=== PATIENT | male | born 1990 | race Caucasian/White ===

== ENCOUNTER 2018-11-16 08:38 | Emergency (ER) | payer SELFPAY ==
[2018-11-16] MEDS ORDERED: DICYCLOMINE HCL INJ 20 MG/2 ML AMPULE IM STA (09:34)
[2018-11-16] MEDS ORDERED: NORMAL SALINE 1000 ML 1,000 ML IV ONE (09:34)
[2018-11-16] MEDS ORDERED: ONDANSETRON HCL INJ/PF 4 MG/2 ML SDV IV ONE (09:34)
--- NOTE | 2018-11-16 09:36 | ER Document Report ---
ED GI/ - General Chief Complaint: Abdominal Pain Stated Complaint: VOMITING Time Seen by Provider: 11/16/18 09:29 Primary Care Provider: GUERO FRANK MD [Primary Care Provider] - Follow up as needed Mode of Arrival: Ambulatory Information source: Patient TRAVEL OUTSIDE OF THE [place] IN LAST 30 DAYS: No - HPI Patient complains to provider of: Diarrhea, Vomiting Notes: 11/16/18 09:34 Patient patient here with complaints of nausea for the next 4 days with diarrhea. No blood in his stool. Today he actually vomited once. States that he occasionally gets a sharp pain in his lower abdomen on the left side, but denies any pain now. He denies any fevers. No dysuria or hematuria. No known sick contacts. No recent travel outside [place]. No recent antibiotic use. No chronic abdominal problems. No chest pain or shortness of breath. No rash. No numbness, tingling, weakness. No blurred or loss of vision. No pain currently. States he has some decreased energy as well. He has been able to keep some food and fluids down. He denies any other specific complaints at this time. - Related Data Allergies/Adverse Reactions: No Known Allergies Allergy (Verified 11/16/18 09:28) Past Medical History - Social History Smoking Status: Unknown if Ever Smoked Family History: Reviewed & Not Pertinent Review of Systems - Review of Systems -: Yes All other systems reviewed and negative Physical Exam - Vital signs Vitals: Temp Pulse Resp BP Pulse Ox 98.0 F 101 H 18 164/99 H 97 11/16/18 08:44 11/16/18 08:44 11/16/18 08:44 11/16/18 08:44 11/16/18 08:44 - Notes Notes: GENERAL: alert, cooperative, nontoxic, no distress. HEAD: normocephalic, atraumatic EYES: conjunctiva pink without discharge, no external redness or swelling. EARS: no external swelling, no external redness NOSE: atraumatic, no external swelling MOUTH/THROAT: mucous membranes moist and pink, posterior pharynx without erythema, swelling, exudate. No trismus or drooling. NECK: soft, supple, full range of motion, no meningismus. CHEST: no distress, lungs clear and equal throughout. No wheezing, rales, rhonchi. CARDIAC: regular rate and rhythm, no murmur, normal capillary refill, normal pulses. No peripheral edema noted. ABDOMEN: Soft, nontender. No rebound tenderness or guarding. No mass. Obese abdomen. BACK: full range of motion, no CVA tenderness. EXTREMITIES: full range of motion of all extremities. No redness, no swelling. NEURO: alert and oriented x 3, no focal deficits, full range of motion of all extremities. PYSCH: appropriate mood, affect. Patient is cooperative. SKIN: pink, warm, dry, no rash. Course - Re-evaluation Re-evalutation: 11/16/18 11:14 Patient states he is feeling significantly better at this time. Labs show an elevated lipase above 400 and elevation of his LFTs. Patient states that he does drink about a sixpack of beer every day. Due to his elevations, I have ordered an ultrasound right upper quadrant to rule out a structural cause of his elevated LFTs and lipase. I gave the patient this information, questions been answered. We will continue to monitor. 11/16/18 11:58 Patient states that he currently does not have insurance, he is concerned with the cost of having the ultrasound done and would not like to have that test done at this time. I explained to him that he could potentially have a structural cause causing his LFTs and lipase to be elevated. These would include but not limited to acute cholecystitis, gallstone pancreatitis, Karoline ductal lithiasis. Explained that he potentially could get worse have increased morbidity and potentially even . Patient verbalized understanding of this. Is of sound mind and will be signed out AGAINST MEDICAL ADVICE. His elevated LFTs and lipase may be secondary to drinking a sixpack of beer every day. He will be instructed to decrease his alcohol intake. Will be discharged home with a prescription for Mary Jimenez, referral to the [facility]. He is instructed to follow-up with him at the next available appointment. Certainly return to the emergency department he has any worsening pain, high fever, persistent vomiting, or has any further concerns. The patient and/or family have decided to leave against medical advice. The patient and/or family are of sound mind to make this decision. The risks of leaving were discussed with the patient and/or family who verbalized an u nderstanding of these risks. The possibility of worsening condition, chance of increased morbidity, disability, mortality, and even were discussed. The patient and/or family still choose to leave against medical advice. Strict return instructions were given. They were also instructed to return to the emergency department for any concerns not outlined in the return instructions. - Vital Signs Vital signs: Temp Pulse Resp BP Pulse Ox 98.0 F 101 H 18 164/99 H 97 11/16/18 08:44 11/16/18 08:44 11/16/18 08:44 11/16/18 08:44 11/16/18 08:44 - Laboratory Result Diagrams: 11/16/18 09:50 11/16/18 09:50 Laboratory results interpreted by me: 11/16/18 11/16/18 09:50 09:50 Calcium 10.3 H Direct Bilirubin 0.5 H AST 145 H ALT 157 H Lipase 458.3 H Urine Protein 100 H Urine Urobilinogen 4.0 H Discharge - Discharge Clinical Impression: Nausea vomiting and diarrhea, Elevated LFTs Pancreatitis Qualifiers: Chronicity: acute Pancreatitis type: unspecified pancreatitis type Acute pancreatitis complication: unspecified Qualified Code(s): K85.90 - Acute pancreatitis without necrosis or infection, unspecified Condition: Stable Disposition: AGAINST MEDICAL ADVICE Instructions: Abdominal Pain ([facility]), Pancreatitis ([facility]), Liver Function Abnormality ([facility]), Chronic Alcoholism ([facility]) Additional Instructions: Take medication as prescribed. Follow-up with primary care at the next available appointment. Decrease your alcohol intake. Follow-up sooner for worsening pain, fever, persistent vomiting, or for any further concerns. Prescriptions: Dicyclomine HCl [Bentyl 20 mg Tablet] 20 mg PO QID #20 tablet Ondansetron HCl [Zofran 4 mg Tablet] 1 tab PO Q4H PRN #10 tablet PRN Reason: Forms: Return to Work, Elevated Blood Pressure, Smoking Cessation Education Referrals: GUERO FRANK MD [Primary Care Provider] - Follow up as needed [facility] [Provider Group] - Follow up as needed
[2018-11-16 10:15] LABS: ABSOLUTE EOSINOPHILS # (AUTO) 0.2 10^3/uL (0.0-0.6); ABSOLUTE LYMPHOCYTES (AUTO) 1.9 10^3/uL (0.5-4.7); ABSOLUTE MONOCYTES (AUTO) 0.5 10^3/uL (0.1-1.4); ABSOLUTE NEUT (AUTO) 2.8 10^3/uL (1.7-8.2); BASOPHILS % (AUTO) 0.8 % (0-2); EOSINOPHILS % (AUTO) 4.4 % (0-6); HEMATOCRIT 48.2 % (37.9-51.0); HEMOGLOBIN 16.8 g/dL (13.5-17.0); LYMPHOCYTES % (AUTO) 34.7 % (13-45); MEAN CORPUSCULAR HEMOGLOBIN 32.2 pg (27.0-33.4); MEAN CORPUSCULAR HGB CONC 34.8 g/dL (32.0-36.0); MEAN CORPUSCULAR VOLUME 92 fl (80-97); MONOCYTES % (AUTO) 8.5 % (3-13); PLATELET COUNT 240 10^3/uL (150-450); RED BLOOD COUNT 5.22 10^6/uL (4.35-5.55); RED CELL DISTRIBUTION WIDTH 13.3 % (11.5-14.0); SEGMENTED NEUTROPHILS % (AUTO) 51.6 % (42-78); TOTAL CELLS COUNTED % (AUTO) 100 %; WHITE BLOOD COUNT 5.4 10^3/uL (4.0-10.5)
[2018-11-16 10:23] LABS: APPEARANCE,URINE SLIGHTLY-CLOUDY; BILIRUBIN,URINE NEGATIVE (NEGATIVE); GLUCOSE, URINE NEGATIVE (NEGATIVE); KETONES,URINE NEGATIVE (NEGATIVE); LEUKOCYTE ESTERASE,URINE NEGATIVE (NEGATIVE); NITRITE,URINE NEGATIVE (NEGATIVE); PROTEIN,URINE 100 mg/dL (NEGATIVE); URINE SPECIFIC GRAVITY 1.025
[2018-11-16 10:24] LABS: COLOR,URINE YELLOW
[2018-11-16 10:35] LABS: ALANINE AMINOTRANSFERASE 157 U/L (21-72); ALBUMIN 4.7 g/dL (3.5-5.0); ALKALINE PHOSPHATASE 81 U/L (38-126); ANION GAP 11 (5-19); ASPARTATE AMINO TRANSFERASE 145 U/L (17-59); BILIRUBIN,DIRECT 0.5 mg/dL (0.0-0.4); BILIRUBIN,TOTAL 0.9 mg/dL (0.2-1.3); BLOOD UREA NITROGEN 9 mg/dL (7-20); CALCIUM 10.3 mg/dL (8.4-10.2); CARBON DIOXIDE 27 mmol/L (22-30); CHLORIDE 101 mmol/L (98-107); GLUCOSE 102 mg/dL (75-110); LIPASE 458.3 U/L (23-300); POTASSIUM 4.2 mmol/L (3.6-5.0); SODIUM 139.3 mmol/L (137-145)
[2018-11-16 12:05] VITALS: BP 153/95
== END 2018-11-16 12:12 | disposition left against medical advice (07) ==
LOC: ER 08:38
DX: K85.90 Acute pancreatitis without necrosis or infection, unspecified (principal); R11.2 Nausea with vomiting, unspecified; R19.7 Diarrhea, unspecified; R79.89 Other specified abnormal findings of blood chemistry
CPT/HCPCS: 99284; 96372; 96361; 96374; 36415; 83690; 85025; 80053; 81001; J0500; J2405; J7030

== ENCOUNTER 2019-06-20 02:28 | Emergency (ER) | payer SELFPAY ==
--- NOTE | 2019-06-20 04:02 | ER Document Report ---
HPI - HPI Time Seen by Provider: 06/20/19 03:48 Pain Level: Denies Context: Patient is a 28-year-old male that comes to the emergency department for chief complaint of generally not feeling well. He states that for the past 2 mornings when he gets up in the morning he will suddenly feel nauseated and vomit several times. He states this is the only time that happens. He states he thought he was getting sick with something. He denies abdominal pain, diarrhea, feve r/chills, or any other complaints at this time. He takes no daily medications. He admits that up until recently he was drinking daily alcohol. He smokes. He denies recreational drugs. He denies any medical history including surgeries or daily medications. He states that he was instructed that he needed a work note if he was not going to go to work today or he would get in trouble. - CONSTITUTIONAL Constitutional: REPORTS: Fever, Chills - EENT EENT: REPORTS: Sore Throat. DENIES: Ear Pain, Eye problems - NEURO Neurology: DENIES: Headache, Weakness, Vision blurred, Dizzinesss / Vertigo - CARDIOVASCULAR Cardiovascular: DENIES: Chest pain - RESPIRATORY Respiratory: DENIES: Trouble Breathing, Coughing - GASTROINTESTINAL Gastrointestinal: DENIES: Abdominal Pain, Black / Bloody Stools - URINARY Urinary: DENIES: Dysuria, Urgency, Frequency - REPRODUCTIVE Reproductive: DENIES: : - MUSCULOSKELETAL Musculoskeletal: DENIES: Extremity pain Past Medical History - General Information source: Patient - Social History Smoking Status: Never Smoker Frequency of alcohol use: Heavy Drug Abuse: None Lives with: Spouse/Significant other Family History: Reviewed & Not Pertinent Patient has suicidal ideation: No Patient has homicidal ideation: No Renal/ Medical History: Denies: Hx Peritoneal Dialysis Surgical Hx: Negative - Immunizations Immunizations up to date: Yes Hx Diphtheria, Pertussis, Tetanus Vaccination: Yes Vertical Provider Document - CONSTITUTIONAL General Appearance: WD/WN, No Apparent Distress, Obese - INFECTION CONTROL TRAVEL OUTSIDE OF THE [place] IN LAST 30 DAYS: No - HEENT HEENT: Atraumatic, Normal ENT Exam, Normocephalic - NECK Neck: Normal Inspection - RESPIRATORY Respiratory: Breath Sounds Normal, No Respiratory Distress, Chest Non-Tender - CARDIOVASCULAR Cardiovascular: Regular Rate, Regular Rhythm. negative: Tachycardia - GI/ABDOMEN Gastrointestinal: Abdomen Soft, Abdomen Non-Tender. negative: Abdomen Tender - BACK Back: Normal Inspection - MUSCULOSKELETAL/EXTREMETIES Musculoskeletal/Extremeties: MAEW, FROM, Non-Tender - NEURO Level of Consciousness: Awake, Alert, Appropriate Motor/Sensory: No Motor Deficit, No Sensory Deficit - DERM Integumentary: Warm, Dry, No Rash Course - Re-evaluation Re-evalutation: On my evaluation patient is asymptomatic. He tells me he is essentially here for a work note but he is also asking me a lot of questions about his symptoms. His symptoms based on his recent alcohol abuse are most consistent with gastritis, his abdomen is completely benign, he has no current symptoms. He was initially hypertensive but this was rechecked and better. He does not have any tachycardia, tremors, or other signs of alcohol withdrawals. He also does not have any sick symptoms on evaluation, no fever on vital signs. I did discuss laboratory work-up because of his symptoms but patient declined because of the potential cost. Because he is asymptomatic at this time I feel this is appropriate. He will be treated for suspected gastritis, discussed follow-up and return precautions. Patient states appreciation and agreement. - Vital Signs Vital signs: Temp Pulse Resp BP Pulse Ox 97.9 F 101 H 18 185/94 H 95 06/20/19 02:33 06/20/19 02:33 06/20/19 02:33 06/20/19 02:33 06/20/19 02:33 Discharge - Discharge Clinical Impression: Vomiting Qualifiers: Vomiting type: unspecified Vomiting Intractability: non-intractable Nausea presence: with nausea Qualified Code(s): R11.2 - Nausea with vomiting, unspecified Condition: Stable Disposition: HOME, SELF-CARE Additional Instructions: Your symptoms and examination indicate gastritis/esophagitis (inflammation of your upper gastrointestinal tract). Take Phenergan for nausea, take Carafate and Pepcid as prescribed to help treat this, you can take additional Rolaids, Tums, Maalox, etc. if needed. You can take Tylenol for pain. Avoid NSAIDs, alcohol, smoking, caffeine, spicy food. Start with clear fluids, progress to bland diet. Follow-up with primary care for additional evaluation and treatment including possible H. pylori testing. Have them recheck your blood pressure. Return if you worsen including uncontrolled vomiting, vomiting blood, black stools, severe pain, fever of 100.4 or greater, or any other concerning or worsening symptoms. Prescriptions: Sucralfate [Carafate 1 gm Tablet] 1 gm PO QID #20 tablet Famotidine [Pepcid 20 mg Tablet] 20 mg PO BID #20 tablet Promethazine HCl [Phenergan 25 mg Tablet] 25 mg PO Q6H PRN #15 tablet PRN Reason: Forms: Return to Work
[2019-06-20 04:08] VITALS: BP 137/78
== END 2019-06-20 04:08 | disposition home or self-care (01) ==
LOC: ER 02:28
DX: R11.2 Nausea with vomiting, unspecified (principal)
CPT/HCPCS: 99283

== ENCOUNTER 2019-10-17 06:08 | Emergency (ER) | payer BC ==
--- NOTE | 2019-10-17 09:29 | ER Document Report ---
ED General <VANESSA MANNING - Last Filed: 10/17/19 11:23> - General TRAVEL OUTSIDE OF THE [place] IN LAST 30 DAYS: No - Related Data Home Medications: PATIENT DENIES HOME MEDICATIONS <BUTCH LÓPEZ - Last Filed: 10/17/19 12:33> - General Chief Complaint: Alcohol Withdrawl Stated Complaint: ALCOHOL WITHDRAWL Time Seen by Provider: 10/17/19 08:41 - HPI Notes: Chief complaint: Request for alcohol detox Generally healthy 28-year-old male presenting with request for detox. Longstanding problems with alcohol abuse. He is never been through a formal detox program but has withdrawn himself from alcohol in the past most recently about 3 months ago. He had some mild tremulousness and some blackouts at that time but is not aware of any seizures or hallucinations. He started binge drinking again about a week ago and says he has been consuming in excess of 1/5 of whiskey per day. His last drink was about 12 hours ago. He feels mildly tremulous at this time. He denies hallucinations, seizures, suicidal ideation, homicidal ideation. He denies any drug abuse. He does not smoke. He has been somewhat nauseated but has not vomited. He denies abdominal pain. Patient is currently living alone. 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 (BUTCH LÓPEZ) - Related Data Allergies/Adverse Reactions: No Known Allergies Allergy (Verified 10/17/19 07:45) Past Medical History - General Information source: Patient - Social History Smoking Status: Current Some Day Smoker Chew tobacco use (# tins/day): No Frequency of alcohol use: Heavy Drug Abuse: None Family History: Reviewed & Not Pertinent Patient has suicidal ideation: No Patient has homicidal ideation: No - Past Medical History Cardiac Medical History: Reports: Hx Hypercholesterolemia Renal/ Medical History: Denies: Hx Peritoneal Dialysis - Immunizations Immunizations up to date: Yes Hx Diphtheria, Pertussis, Tetanus Vaccination: Yes <BUTCH LÓPEZ - Last Filed: 10/17/19 12:33> Review of Systems <BUTCH LÓPEZ - Last Filed: 10/17/19 12:33> - Review of Systems Notes: Constitutional: Negative for fever. HENT: Negative for sore throat. Eyes: Negative for visual changes. Cardiovascular: Negative for chest pain. Respiratory: Negative for shortness of breath. Gastrointestinal: As per HPI. Genitourinary: Negative for dysuria. Musculoskeletal: Negative for back pain. Skin: Negative for rash. Neurological: As per HPI. 10 point ROS negative except as marked above and in HPI. (BUTCH LÓPEZ) Physical Exam <BUTCH LÓPEZ - Last Filed: 10/17/19 12:33> - Vital signs Vitals: Temp Pulse Resp BP Pulse Ox 97.9 F 112 H 16 166/98 H 96 10/17/19 06:47 10/17/19 06:47 10/17/19 06:47 10/17/19 06:47 10/17/19 06:47 - Notes Notes: GENERAL: Well-developed well-nourished appearing in no acute distress. SKIN: Warm and mildly diaphoretic. HEAD: Normocephalic atraumatic. EYES: PERRLA. EOMI. Conjunctivae and sclerae clear. EARS: CANALS AND TMS CLEAR. NOSE: CLEAR. MOUTH: Moist mucosa. Good dentition. No stridor or edema. No drooling. NECK: Supple. No masses or thyromegaly. No adenopathy. Carotids 2+ without bruits. No JVD. BACK: Symmetrical without tenderness. CHEST: Respirations unlabored. Breath sounds clear and symmetrical. HEART: Mildly tachycardic regular rhythm. No murmur gallop or rub. ABDOMEN: Soft nontender without masses, organomegaly or rebound. Bowel sounds normally active. No bruits. GENITALIA: Deferred. EXTREMITIES: No edema. No calf tenderness. Cap refill less than 1.5 seconds. Dorsalis pedis and posterior tibial pulses 3+ and symmetrical. NEUROLOGICAL: Minimal tremor GCS 15. Alert and oriented x3. Normal gait. Fluent speech. Cranial nerves II through XII intact. Sensorimotor and cerebellar normal. Normal tone. PSYCHIATRIC: Appropriate affect. (BUTCH LÓPEZ) Course - Laboratory Result Diagrams: 10/17/19 08:10 10/17/19 08:10 <VANESSA MANNING - Last Filed: 10/17/19 11:23> - Laboratory Result Diagrams: 10/17/19 08:10 10/17/19 08:10 <BUTCH LÓPEZ - Last Filed: 10/17/19 12:33> - Re-evaluation Re-evalutation: 10/17/19 09:27 I am going to give him an IV banana bag and place him on cardiac cath lab technologist. We will give him some oral Ativan. I will asked the behavioral service to see him regarding referral for voluntary detox. 10/17/19 12:23 Patient received an IV banana bag here and also was given some oral Ativan. Blood pressure remains mildly elevated but his pulse rate is 73 his room air ox ygenation is normal. His tremor is controlled and he is not having any hallucinations. We noted on his urine drug screen he tested positive for cocaine although he initially denied any drug use. Patient was seen by behavioral service and they felt he was very stable for outpatient referral and they provided several resources for him. I am going to send him home with some oral Ativan and a note for work for the next 3 days. 10/17/19 12:26 (BUTCH LÓPEZ) - Vital Signs Vital signs: Temp Pulse Resp BP Pulse Ox 97.9 F 112 H 21 H 162/98 H 96 10/17/19 06:47 10/17/19 06:47 10/17/19 10:01 10/17/19 10:01 10/17/19 10:01 - Laboratory Laboratory results interpreted by me: 10/17/19 08:10 Sodium 136.1 L Chloride 97 L BUN 5 L AST 71 H ALT 62 H Discharge <MANNINGVANESSA - Last Filed: 10/17/19 11:23> <BUTCH LÓPEZ - Last Filed: 10/17/19 12:33> - Discharge Clinical Impression: Chronic alcoholism Alcohol withdrawal syndrome Qualifiers: Complication of substance-induced condition: uncomplicated Qualified Code(s): F10.230 - Alcohol dependence with withdrawal, uncomplicated Condition: Stable Disposition: HOME, SELF-CARE Additional Instructions: You have been evaluated by both medical and behavioral health teams for alcohol withdrawal and have been deemed appropriate for discharge. While in the em ergency department you received the following services: Medical screening and assessment, nursing services, dietary services, pharmacological services, one-on-one counseling and/or psychotherapy, and environmental services. You have been provided with an outpatient mental health resource list that contained the contact information and walk in times for [place]. You have been provided with a substance abuse treatment resource list with the contact information for [facility] and mobile crisis highlighted. You were also provided with an online NA and AA support group resource. You are encouraged to follow up with substance abuse treatment. ACUTE ALCOHOL INTOXICATION and ALCOHOL ABUSE: Your evaluation revealed very high levels of alcohol. You can from drinking a large amount of alcohol rapidly! Further, there's the risk of falls, traffic accidents, and fights. A high portion (about 50 percent) of the serious injuries seen in hospital emergency rooms are caused by alcohol. Alcohol overdosage is usually due to an underlying emotional or psychiatric problem. You may benefit from counselling. If "binge" drinking is an ongoing problem for you, or if you drink ANY AMOUNT of alcohol EVERY day, you most likely have a tendency to alcoholism. You should avoid alcohol totally. We can refer you for treatment. Persons with alcohol problems are often also prone to other addictions -- you should discuss any use of medications or drugs with the doctor. You should be watched at home for the next several hours by someone who has not been drinking. Get extra fluids for the next 24 hours. Call the doctor if there is repeated vomiting, increasing headache, decreasing level of alertness, or any other worsening. CHRONIC ALCOHOLISM and ALCOHOL ABUSE: Your evaluation reveals evidence of chronic alcoholism, an addiction to alcohol. The tendency to alcoholism may be inherited. Chronic use of alcohol weakens muscles, causes fatty deposits in the liver, damages the stomach, makes you more prone to infections, and can cause defects in unborn children. In the long run, brain atrophy and cirrhosis of the liver result. You are also at greater risk for certain types of cancer, such as cancer of the mouth, throat, stomach, and liver. Counselling services are available to help you. In-hospital treatment programs often help. Support groups such as Alcoholics Anonymous can be very useful in beating this addiction. Your physician can make a referral for you. As alcoholics often are prone to other addictions, you should discuss your use of any other medications with the doctor. ALCOHOL WITHDRAWAL: Your symptoms are caused by alcohol withdrawal. After a period of frequent drinking, the brain and body are changed by the alcohol. When you quit or reduce your drinking, the nervous system becomes unstable. Withdrawal symptoms can start a few hours after your last drink, but sometimes don't begin until a couple of days later. Symptoms can include shakiness, sweating, insomnia, nausea, vomiting, fearfulness, hallucinations, and seizures. In addition to the acute effects of alcohol withdrawal, we often have to deal with the medical effects of alcoholism. These problems often include dehydration, stomach irritation, intestinal bleeding, low blood sugar, liver disease, and pancreas inflammation. Treatment for alcohol withdrawal includes mild sedatives, vitamins, and fluids. You need to be with someone who can help if symptoms become severe. Many patients can withdraw at home. Admission to the hospital or a detox facility may be necessary if withdrawal symptoms are severe and uncontrollable. Abstaining from alcohol is the only effective long-term treatment. If you start drinking again, you will not be able to control yourself after the first drink. Treatment programs are available. In addition, many alcoholics benefit from Alcoholics Anonymous or other support groups available through your counselor or religion wash barrel leader. AL-ANOMarshal and MYRA-TEEN are support groups for friends and family members of an alcoholic. Go to the emergency room if you develop persistent vomiting, severe abdominal pain, fever, shortness of breath, hallucinations, uncontrollable tremors, or seizures. COCAINE ABUSE: Cocaine causes many dangerous medical problems. Problems can occur even with "usual" amounts. Cocaine affects judgement, creating a sense of invulnerability. Cocaine users often make bad decisions that seem "great" at the time. Most cocaine users eventually will be hurt by bad job performance, da allegra personal relations, crime, and unsafe sexual practices. Toxic effects of cocaine can include seizures, hallucinations, delusions, high blood pressure, heart damage, or sudden . There's always the risk of a "bad batch." But heart attacks, brain hemorrhages, or cardiac arrest can occ ur unpredictably even with "normal" use. Injection of cocaine is risky for abscesses, endocarditis (heart infection), pneumonia, and AIDS. Withdrawal from cocaine often causes anxiety and drug cravings. Some users become paranoid and psychotic. Many treatment programs are available, but you must make the decision to quit. Medication can be prescribed to control the symptoms of cocaine toxicity (beta blockers or benzodiazepines). Withdrawal symptoms may require tranquilizers. AT ANY TIME, IF YOUR SYMPTOMS CHANGE SIGNIFICANTLY OR WORSEN OR YOU DEVELOP NEW SYMPTOMS, RETURN TO THE EMERGENCY DEPARTMENT IMMEDIATELY FOR RE-EVALUATION. Prescriptions: Lorazepam [Ativan 1 mg Tablet] 2 mg PO QID #30 tab Forms: Return to Work
[2019-10-17 09:31] LABS: ABSOLUTE EOSINOPHILS # (AUTO) 0.1 10^3/uL (0.0-0.6); ABSOLUTE LYMPHOCYTES (AUTO) 2.8 10^3/uL (0.5-4.7); ABSOLUTE MONOCYTES (AUTO) 0.9 10^3/uL (0.1-1.4); ABSOLUTE NEUT (AUTO) 4.6 10^3/uL (1.7-8.2); BASOPHILS % (AUTO) 0.3 % (0-2); EOSINOPHILS % (AUTO) 1.1 % (0-6); HEMATOCRIT 45.3 % (37.9-51.0); HEMOGLOBIN 15.8 g/dL (13.5-17.0); LYMPHOCYTES % (AUTO) 33.6 % (13-45); MEAN CORPUSCULAR HEMOGLOBIN 29.1 pg (27.0-33.4); MEAN CORPUSCULAR HGB CONC 34.9 g/dL (32.0-36.0); MEAN CORPUSCULAR VOLUME 84 fl (80-97); MONOCYTES % (AUTO) 10.3 % (3-13); PLATELET COUNT 323 10^3/uL (150-450); RED BLOOD COUNT 5.42 10^6/uL (4.35-5.55); RED CELL DISTRIBUTION WIDTH 13.5 % (11.5-14.0); SEGMENTED NEUTROPHILS % (AUTO) 54.7 % (42-78); TOTAL CELLS COUNTED % (AUTO) 100 %; WHITE BLOOD COUNT 8.5 10^3/uL (4.0-10.5)
[2019-10-17 09:39] LABS: ALBUMIN 4.4 g/dL (3.5-5.0); ALKALINE PHOSPHATASE 97 U/L (38-126); ANION GAP 12 (5-19); ASPARTATE AMINO TRANSFERASE 71 U/L (17-59); BILIRUBIN,DIRECT 0.4 mg/dL (0.0-0.4); BILIRUBIN,TOTAL 0.9 mg/dL (0.2-1.3); BLOOD UREA NITROGEN 5 mg/dL (7-20); CALCIUM 9.7 mg/dL (8.4-10.2); CARBON DIOXIDE 27 mmol/L (22-30); CHLORIDE 97 mmol/L (98-107); GLUCOSE 100 mg/dL (75-110); TOTAL PROTEIN 7.9 g/dL (6.3-8.2)
[2019-10-17 09:49] LABS: ALCOHOL < 10 mg/dL (NONE DETECTED)
[2019-10-17] MEDS ORDERED: LORAZEPAM 1 MG TABLET PO SCH (10:00)
[2019-10-17 10:34] LABS: URINE AMPHETAMINES SCREEN NEGATIVE; URINE BARBITURATES SCREEN NEGATIVE; URINE BENZODIAZEPINES SCREEN NEGATIVE; URINE METHADONE SCREEN NEGATIVE; URINE PHENCYCLIDINE SCREEN NEGATIVE
[2019-10-17 10:35] LABS: URINE COCAINE SCREEN UNCONFIRMED POSITIVE; URINE MARIJUANA (THC) SCREEN UNCONFIRMED POSITIVE
--- NOTE | 2019-10-17 12:41 | PSYCHOLOGICAL NOTE ---
Psych Note - Psych Note Date seen by psych provider: 10/17/19 Time seen by psych provider: 11:15 Psych Note: Patient is a 28-year-old male who presents to ED via POV for medical concerns related to ETOH withdrawal. Patient reports medical concerns related to ETOH withdrawal. Patient wanted to be medically screened to have his "major organs checked out." Patient denies SI/HI. Patient reports no mental health history or mental health concerns. Patient is agreeable to receive substance abuse treatment/detox resources. Patient was provided with psychoeducation regarding the physiological and psychological aspects of addiction, and the importance of follow up with a mental health provider to address the psychological aspect of addiction. Patient was receptive. Patient is alert and oriented to person, place, time and circumstance. Mood is normal with congruent affect. Patient denies suicidal and homicidal ideations. Delusions are absent and behavior is congruent with an intact reality based presentation (i.e., organized and linear through processes). There is no observed behavior that suggests patient is responding to internal stimuli. Patient is able to engage in organized, rational thought processes. Patient is able to express needs and wants in a logical manner. Patient denies current auditory and visual hallucinations. Eye contact is appropriate. Conversational speech is within normal rate, tone, and prosody. Intellectual ability appears to be within average range. Attention and concentration are good. Insight, judgment and impulse control are currently fair. Impression/Plan: Patient is cleared from acute psychiatric services. Consult was placed to provide patient with resources for detox/substance abuse treatment. Patient denied suicidal and homicidal ideations. Patient was provided psychoeducation regarding the physiological and psychological aspects of addiction. Patient was provided with an outpatient mental health resource list with the walk-in information for [facility] highlighted. Patient was provided with a substance abuse resource list with the contact information for mobile crisis and [facility] highlighted. Patient was provided with an online resource in which he could engage in NA and AA support group meetings. Dr. Vidales was consulted on the care and management of this patient; attending physician is in agreement with recommendations and disposition.
[2019-10-17 13:08] VITALS: BP 168/92
[2019-10-17] MEDS ORDERED: NORMAL SALINE 1000 ML 1,000 ML with POTASSIUM CHLORIDE 20 MEQ, MAGNESIUM SULFATE 8 MEQ,... IV SCH ×5 (18:00)
== END 2019-10-17 13:00 | disposition home or self-care (01) ==
LOC: ER 06:08
DX: F10.230 Alcohol dependence with withdrawal, uncomplicated (principal); F17.200 Nicotine dependence, unspecified, uncomplicated
CPT/HCPCS: 36415; 80053; 80307; 83690; 85025; 99285